=== PATIENT | female | born 1980 | race Caucasian/White ===

== ENCOUNTER 2021-03-08 22:09 | Emergency (ER) | payer OTHER ==
[~2021-03-08] VITALS: Ht 167.6 cm; Wt 54.5 kg
[2021-03-08 23:35] VITALS: BP 126/74
== END 2021-03-08 23:49 | disposition home or self-care (01) ==
LOC: EMS 22:11
DX: J02.9 Acute pharyngitis, unspecified (principal); F17.210 Nicotine dependence, cigarettes, uncomplicated; F12.90 Cannabis use, unspecified, uncomplicated; F19.90 Other psychoactive substance use, unspecified, uncomplicated; F14.90 Cocaine use, unspecified, uncomplicated; Z88.1 Allergy status to other antibiotic agents
CPT/HCPCS: 99281; Z7502

== ENCOUNTER 2021-11-16 21:32 | Emergency (ER) | payer OTHER ==
[~2021-11-16] VITALS: Ht 167.6 cm; Wt 54.5 kg
[2021-11-16 22:23] VITALS: BP 125/75
[2021-11-16] MEDS ORDERED: ONDANSETRON HCL 4 MG TABLET PO ONE (23:15)
[2021-11-16] MEDS ORDERED: IBUPROFEN 600 MG TABLET PO ONE (23:15)
[2021-11-16] MEDS ORDERED: ACETAMINOPHEN 500 MG TABLET PO ONE (23:15)
== END 2021-11-17 02:33 | disposition home or self-care (01) ==
LOC: EMS 21:33
DX: G44.209 Tension-type headache, unspecified, not intractable (principal); F15.10 Other stimulant abuse, uncomplicated; F11.90 Opioid use, unspecified, uncomplicated; F12.90 Cannabis use, unspecified, uncomplicated; F17.210 Nicotine dependence, cigarettes, uncomplicated; Z88.1 Allergy status to other antibiotic agents
CPT/HCPCS: 99284; Q0162

== ENCOUNTER 2022-07-17 11:46 | Emergency (ER) | payer OTHER ==
[~2022-07-17] VITALS: Ht 167.6 cm; Wt 63.6 kg
[2022-07-17] MEDS ORDERED: IBUPROFEN 600 MG TABLET PO ONE (12:30)
[2022-07-17] MEDS ORDERED: GABAPENTIN 300 MG CAPSULE PO ONE (12:30)
[2022-07-17] MEDS ORDERED: MINE50OI TP (12:51)
[2022-07-17] MEDS ORDERED: MUPI1OIN5 TP (12:51)
[2022-07-17] MEDS ORDERED: GABA-1181 PO (14:08)
[2022-07-17] MEDS ORDERED: NAPR-1025 PO (14:08)
[2022-07-17 14:47] VITALS: BP 117/75
== END 2022-07-17 14:49 | disposition home or self-care (01) ==
LOC: EMS 11:46
DX: S90.121A Contusion of right lesser toe(s) without damage to nail, initial encounter (principal); R20.2 Paresthesia of skin; L98.8 Other specified disorders of the skin and subcutaneous tissue; F14.90 Cocaine use, unspecified, uncomplicated; F11.90 Opioid use, unspecified, uncomplicated; F12.90 Cannabis use, unspecified, uncomplicated; F15.90 Other stimulant use, unspecified, uncomplicated; F17.210 Nicotine dependence, cigarettes, uncomplicated; Z98.890 Other specified postprocedural states; Z90.49 Acquired absence of other specified parts of digestive tract; Z88.1 Allergy status to other antibiotic agents; X50.1XXA Overexertion from prolonged static or awkward postures, initial encounter; Y93.89 Activity, other specified; Y92.89 Other specified places as the place of occurrence of the external cause; Y99.8 Other external cause status
CPT/HCPCS: 99283

== ENCOUNTER 2022-07-19 02:03 | Emergency (ER) | payer OTHER ==
[~2022-07-19] VITALS: Ht 167.6 cm; Wt 63.0 kg
[~2022-07-19 02:03] MED LIST: GABA-1181 PO; MINE50OI TP; MUPI1OIN5 TP; NAPR-1025 PO
[2022-07-19 03:03] VITALS: BP 119/77
[2022-07-19] MEDS ORDERED: DOXY-354 PO (03:26)
[2022-07-19] MEDS ORDERED: DOXYCYCLINE HYCLATE 100 MG TABLET PO ONE (03:30)
== END 2022-07-19 03:50 | disposition home or self-care (01) ==
LOC: EMS 02:07
DX: S90.414A Abrasion, right lesser toe(s), initial encounter (principal); B35.3 Tinea pedis; F41.9 Anxiety disorder, unspecified; F11.90 Opioid use, unspecified, uncomplicated; F12.90 Cannabis use, unspecified, uncomplicated; F14.90 Cocaine use, unspecified, uncomplicated; F15.10 Other stimulant abuse, uncomplicated; F17.210 Nicotine dependence, cigarettes, uncomplicated; X58.XXXA Exposure to other specified factors, initial encounter; Y93.89 Activity, other specified; Y92.89 Other specified places as the place of occurrence of the external cause; Y99.8 Other external cause status; Z88.0 Allergy status to penicillin
CPT/HCPCS: 99283